=== PATIENT | male | born 1990 | race Caucasian/White ===

== ENCOUNTER 2019-03-04 10:56 | Observation (INO) ==
[2019-03-04] MEDS ORDERED: NORMAL SALINE 1,000 ML IV ONE (11:20)
--- NOTE | 2019-03-04 11:28 | ERNOTE ---
Psychological HPI - General Chief Complaint: Drug Overdose Source: Reports: patient Exam Limitations: Reports: no limitations - Immun/Allergies/Home Medications Allergies/Adverse Reactions: Allergies quetiapine [From Seroquel] Allergy (Severe, Verified 03/04/19 11:16) rhabdomylosis sertraline Allergy (Severe, Verified 03/04/19 11:16) rhabdomylosis naproxen Allergy (Verified 03/04/19 11:16) Itching Home Medications: HOME MEDICATIONS omeprazole 20 mg capsule,delayed release See Rx Instructions .ROUTE .COMPLEX #90 cap 11/22/18 [Last Taken Unknown] benztropine 1 mg tablet 1 mg PO BID #60 tab 02/16/19 [Last Taken Unknown] clonazepam 1 mg tablet 1 mg PO TID PRN #90 tab 02/16/19 [Last Taken Unknown] haloperidol 5 mg tablet 5 mg PO BID #60 tab 02/16/19 [Last Taken Unknown] hydroxyzine pamoate 50 mg capsule See Rx Instructions PO HS PRN #60 cap 02/16/19 [Last Taken Unknown] oxcarbazepine 300 mg tablet 300 mg PO BID #60 tab 02/16/19 [Last Taken Unknown] paliperidone palmitate (3-month) 819 mg/2.625 mL intramuscular syringe 819 mg IM [id number] #2.63 ml 02/16/19 [Last Taken Unknown] - History of Present Illness Narrative: Patient has multiple psychiatric diagnosis that he is on disability for and is seeing Ritu Ashley. He states that recently he has had a difficult time sleeping so this morning he took #15 Klonipin to just sleep, admit to drinking at least 10 beer on the 02 of March which he thinks was yesterday. He denies any acute stress, has chronic conflict with his . He denies wanting to "I have too much to live for" (names his mother and little brother) When his mother wasn't able to get hold of him this morning she called the police for a welfare check. He was brought to the ER by an officer after admitting to taking that much klonipin Time Seen by Provider: 03/04/19 11:03 Arrived by: Reports: police Intent: Reports: wants to escape. Denies: suicide Mechanism: Reports: overdose Situational Problems: Reports: spouse Associated Symptoms: Reports: depressed Review of Systems - Review of Systems Constitutional: Absent: recent illness, fever EYE: Absent: vision changes ENT: Present: no symptoms reported Respiratory: Absent: shortness of breath Cardiology: Absent: chest pain Gastrointestinal/Abdominal: Absent: nausea, abdominal pain Genitourinary: Present: no symptoms reported Musculoskeletal: Absent: back pain Neurological: Absent: headache Psych: Present: See HPI, depressed Medical History (Updated 03/04/19 @ 13:28 by Kathrine Grullon MD) Paranoid schizophrenia (Chronic) Anxiety (Chronic) Major depressive disorder, recurrent episode Anxiety Depression Disorganized schizophrenia Generalized anxiety disorder Hypokalemia Hypothyroidism Personality disorder Psychosis Tourettes disorder History of psychiatric hospitalization 7 PCU admits from 2009- 2011 [facility] [place] and [facility] [place] Rhabdomyolysis Substance abuse Suicidal ideations plan to OD in 2011 Surgical History: Surgical History (Updated 03/03/18 @ 17:15 by Lupe Ochoa RN) H/O elbow surgery Family History: Family History (Updated 03/03/18 @ 17:28 by Lupe Ochoa RN) Brother Intermittent explosive disorder Mother Arthritis Major depressive disorder Father Diabetes Myocardial infarction CVA (cerebral vascular accident) Sleep apnea Alcohol abuse Social History: Preferred Language Chinese Do you have any evangelical or No cultural preference? Smoking Status Current every day smoker Psych History Hx of Anxiety,Hx of Depression,Hx of Schizophrenia Alcohol Use occasionally Drug Use marijuana (Last Updated 02/16/19 @ 15:28 by Ritu Ashley FOOD SERVICE DIRECTOR) No Social History Section defined Psychological Exam - Exam General Appearance: Present: wd/wn, no apparent distress, other - slightly slow but able to converse Head Exam: Present: normal inspection Neurological: Present: normal mood/affect, calm, oriented x 3 Thoughts/Hallucinations: Present: normal thought pattern, no apparent hallucination Behavior/Eye Contact/Speech: Present: cooperative, good eye contact, normal speech Eye Exam: Normal inspection: bilateral, PERRL: bilateral Respiratory: Present: no respiratory distress, normal breath sounds, no accessory muscle use, lungs clear Cardiovascular/Chest: Present: regular rate, rhythm, no murmur Gastrointestinal/Abdominal: Present: normal bowel sounds, nontender, nondistended, soft Extremity Exam: Present: normal inspection, no edema Skin Exam: Present: normal color, warm/dry, other - no signs of injury Progress - Results and Orders Patient's Lab Results:: I have reviewed the patient's lab results. - Vital Signs Patient's Vital Signs:: I have reviewed the patient's vital signs. Vital Signs: Vital Signs 03/04/19 11:09 03/04/19 11:17 Pulse Rate 101 H 105 H Respiratory Rate 15 16 Blood Pressure 143/95 H 135/86 O2 Sat by Pulse Oximetry 97 98 - EKG EKG #1 EKG: NSR - sinustachycardia, RBBB - incomplete, no ST T wave changes EKG read: Interp. by me - Progress/Reassessment Chief Complaint: Drug Overdose Progress Note-Subjective: 03/04/19 13:21 discussed with julio Raymundo to admit for observation as patient is not suicidal doesn't need to be SCU admission Time Seen by Provider: 03/04/19 11:03 Departure Clinical Impression: Drug overdose Qualifiers: Encounter type: initial encounter Injury intent: undetermined intent Qualified Code(s): T50.904A - Poisoning by unspecified drugs, medicaments and biological substances, undetermined, initial encounter - Departure Disposition: Still a patient Condition: Stable
[2019-03-04 11:32] LABS: Hematocrit 43.6 % (42.0-52.0); Mean Corpuscular Hemoglobin 27.9 pg (27-31); Mean Corpuscular Hgb Conc 34.4 g/dl (32-36); Mean Platelet Volume 10.4 fl (8-11.3); Neutrophil # 4.9 K/mm3 (1.3-6.0); Neutrophil % 54.2 % (42-75.0); Platelet Count 256 K/mm3 (150-450); Red Blood Count 5.38 M/mm3 (4.7-6.0); Red Cell Distribution Width 13.6 % (11.5-14.0)
[2019-03-04 11:56] LABS: ALT 26 U/L (19-67); AST 20 U/L (0-48); Albumin * 3.5 gm/dl (3.4-5.0); Alkaline Phosphatase * 104 U/L (50-170); Anion Gap 15.3 mmol/L (6.8-13.8); Bilirubin, Total 0.3 mg/dL (0.0-1.1); Blood Urea Nitrogen 5 mg/dL (6-23); Ca. Corrected For Albumin 8.7 mg/dL (8.4-10.2); Calcium * 8.6 mg/dL (7.9-10.9); Carbon Dioxide 25.3 mmol/L (24-32.6); Chloride 105 mmol/L (97-106); Glucose * 101 mg/dL (70-110); Potassium 3.6 mmol/L (3.4-4.6); Salicylate 4.5 mg/dL (2.8-20.0); Sodium 142 mmol/L (132-142); TSH * 2.804 uIU/mL (0.358-3.74)
[2019-03-04 12:56] LABS: Urine Bilirubin Negative (NEGATIVE); Urine Blood Negative /ul (NEGATIVE); Urine Ketone Negative (NEGATIVE); Urine Nitrite Negative (NEGATIVE); Urine Protein Negative (NEGATIVE); Urine Urobilinogen Normal (NORMAL)
[2019-03-04 13:02] LABS: Urine Appearance Clear (CLEAR); Urine Bacteria None Seen; Urine Color Yellow; Urine RBC None Seen /hpf (0-5); Urine WBC None Seen /hpf (0-5)
[2019-03-04 13:15] LABS: Cocaine Ur Negative (NEGATIVE); Urine Barbiturate Negative (NEGATIVE); Urine Benzodiazepines Positive (NEGATIVE); Urine Opiates Negative (NEGATIVE); Urine PCP Negative (NEGATIVE); Urine THC Positive (NEGATIVE)
[2019-03-04] MEDS: MULTIVIT INFUSN,ADULT 4,VIT K 10 ML, THIAMINE HCL 100 MG in NORMAL SALINE 1,000 ML IV SCH ×2 (16:14→19:44)
--- NOTE | 2019-03-04 18:35 | HP ---
Chief Complaint - Chief Complaint Date of Service: 03/04/19 Time of Service: 18:35 Chief Complaint: Sedated, OD on anxiety medication History of Present Illness: 28-year-old male with history of anxiety/depression currently on clonazepam presented to the ER with sedation and somnolence. Patient states that he took 15 mg of his clonazepam for sleep issues. He denied any intent of wanting to hurt himself or hurt others. States he has a difficult time sleeping which is the only reason why did it. Of note his toxicology came back positive for benzodiazepines as well as alcohol. Poison control was called who recommended 24-hour monitoring but patient was protecting his airway and his vital signs are stable. He was admitted to the floor under observation. He is sleepy but denies any other issues or symptoms. Medical History (Updated 03/04/19 @ 13:28 by Kathrine Grullon MD) Paranoid schizophrenia (Chronic) Anxiety (Chronic) Major depressive disorder, recurrent episode Anxiety Depression Disorganized schizophrenia Generalized anxiety disorder Hypokalemia Hypothyroidism Personality disorder Psychosis Tourettes disorder History of psychiatric hospitalization 7 PCU admits from 2009- 2011 [facility] and [facility] [place] Rhabdomyolysis Substance abuse Suicidal ideations plan to OD in 2011 Surgical History: Surgical History (Updated 03/03/18 @ 17:15 by Lupe Ochoa RN) H/O elbow surgery Family History: Family History (Updated 03/03/18 @ 17:28 by Lupe Ochoa RN) Brother Intermittent explosive disorder Mother Arthritis Major depressive disorder Father Diabetes Myocardial infarction CVA (cerebral vascular accident) Sleep apnea Alcohol abuse Social History: Patient Lives/Resources Home Utilized Preferred Language Bengali Do you have any mosque or No cultural preference? Smoking Status Current every day smoker Have you smoked in the past 12 Yes months Do you dip or chew tobacco No Psych History Hx of Anxiety,Hx of Depression,Hx of Schizophrenia Alcohol Use occasionally Drug Use marijuana (Last Updated 02/16/19 @ 15:28 by RYAN Castañeda) No Social History Section defined Review Of Systems (GEN) - Review of Systems Generalized/Overall Review: Present: No Symptoms Reported EENTM: Present: No Symptoms Reported - If this is apparently them Respiratory: Absent: Shortness of Breath Cardiac: Absent: Chest Pain, Palpitations Abdominal: Present: No Symptoms Reported Genitourinary: Present: No Symptoms Reported Musculoskeletal: Present: No Symptoms Reported Neurological: Present: No Symptoms Reported Skin: Present: No Symptoms Reported Endocrine: Present: No Symptoms Reported Immunizations: IMMUNIZATION HX Immunizations Up to Date Yes History of Influenza Vaccine No Hx Pneumococcal Vaccination No Allergies/Adverse Reactions: Allergies Allergy/AdvReac Type Severity Reaction Status Date / Time quetiapine [From Seroquel] Allergy Severe rhabdomylos Verified 03/04/19 11:16 is sertraline Allergy Severe rhabdomylos Verified 03/04/19 11:16 is naproxen Allergy Itching Verified 03/04/19 11:16 Home Medications: HOME MEDICATIONS omeprazole 20 mg capsule,delayed release See Rx Instructions .ROUTE .COMPLEX #90 cap 11/22/18 [Last Taken Unknown] benztropine 1 mg tablet 1 mg PO BID #60 tab 02/16/19 [Last Taken Unknown] clonazepam 1 mg tablet 1 mg PO TID PRN #90 tab 02/16/19 [Last Taken Unknown] haloperidol 5 mg tablet 5 mg PO BID #60 tab 02/16/19 [Last Taken Unknown] hydroxyzine pamoate 50 mg capsule See Rx Instructions PO HS PRN #60 cap 02/16/19 [Last Taken Unknown] oxcarbazepine 300 mg tablet 300 mg PO BID #60 tab 02/16/19 [Last Taken Unknown] paliperidone palmitate (3-month) 819 mg/2.625 mL intramuscular syringe 819 mg IM [id number] #2.63 ml 02/16/19 [Last Taken Unknown] Exam - Exam Vital Signs: Vital Signs - Last Taken Temp 36.5 C 03/04/19 14:12 Pulse 83 03/04/19 17:39 Resp 16 03/04/19 17:39 BP 140/75 H 03/04/19 17:39 Pulse Ox 96 03/04/19 17:39 Constitutional: Present: Alert, Oriented x3, Somnolent ENT Exam: Present: hearing grossly normal. Absent: nasal congestion, nasal drainage Eye Exam: bilateral eye: normal inspection, PERRL, EOMI Neck: Present: non-tender, supple Respiratory: Present: lungs clear, normal breath sounds, no respiratory distress Cardiovascular/Chest: Present: regular rate, rhythm, no murmur Abdomen: Present: Normal bowel sounds, soft, nontender /Rectal: Present: Exam deferred Skin Exam: Present: normal color, warm/dry Appearance: Present: appropriate appearance, impaired insight Eye contact: Present: cooperative Thoughts: Present: normal thought pattern, normal mood /affect Diagnostic Studies: Abnormal Lab Results 03/04/19 03/04/19 03/04/19 Range/Units 11:27 11:27 12:50 Immature Gran % (Auto) 0.60 H (0.001-0.429) % Immature Gran # (Auto) 0.05 H (0.000-0.0310) K/mm3 Monocytes % 10.9 H (0.0-9) % Anion Gap 15.3 H (6.8-13.8) mmol/L BUN 5 L (6-23) mg/dL BUN/Creatinine Ratio 6.0 L (9.0-21.6) Acetaminophen Less than 0.2 L (10.0-30.0) mcg/mL U Benzodiazepines Scrn Positive H (NEGATIVE) Urine Marijuana (THC) Positive H (NEGATIVE) Ethyl Alcohol 77.0 H (0.0-10.0) mg/dL Laboratory Results WBC 9.0 K/mm3 (4.0-10.5) 03/04/19 11:27 RBC 5.38 M/mm3 (4.7-6.0) 03/04/19 11:27 Hgb 15.0 gm/dL (13.5-18.0) 03/04/19 11:27 Hct 43.6 % (42.0-52.0) 03/04/19 11:27 MCV 81.0 fl (78-100) 03/04/19 11:27 MCH 27.9 pg (27-31) 03/04/19 11:27 MCHC 34.4 g/dl (32-36) 03/04/19 11:27 RDW 13.6 % (11.5-14.0) 03/04/19 11:27 Plt Count 256 K/mm3 (150-450) 03/04/19 11:27 MPV 10.4 fl (8-11.3) 03/04/19 11:27 Immature Gran % (Auto) 0.60 % (0.001-0.429) H 03/04/19 11:27 Immature Gran # (Auto) 0.05 K/mm3 (0.000-0.0310) H 03/04/19 11:27 54.2 % (42-75.0) 03/04/19 11:27 31.5 % (20-51) 03/04/19 11:27 10.9 % (0.0-9) H 03/04/19 11:27 2.2 % (0.0-3.0) 03/04/19 11:27 0.6 % (0.0-1.0) 03/04/19 11:27 Nucleated RBC % 0.0 k/mm3 (0-1) 03/04/19 11:27 4.9 K/mm3 (1.3-6.0) 03/04/19 11:27 2.84 k/mm3 (1.5-3.5) 03/04/19 11:27 1.0 k/mm3 (0.0-1.0) 03/04/19 11:27 0.2 k/mm3 (0.0-0.7) 03/04/19 11:27 Absolute Basophils 0.1 k/mm3 (0.0-0.1) 03/04/19 11:27 Sodium 142 mmol/L (132-142) 03/04/19 11:27 142 mmol/L (130-142) 03/04/19 11:27 Potassium 3.6 mmol/L (3.4-4.6) 03/04/19 11:27 Chloride 105 mmol/L (97-106) 03/04/19 11:27 Carbon Dioxide 25.3 mmol/L (24-32.6) 03/04/19 11:27 15.3 mmol/L (6.8-13.8) H 03/04/19 11:27 BUN 5 mg/dL (6-23) L 03/04/19 11:27 0.83 mg/dL (0.4-1.4) 03/04/19 11:27 Est GFR (Non-Af Amer) 116 mL/min (60-130) D 03/04/19 11:27 6.0 (9.0-21.6) L 03/04/19 11:27 101 mg/dL (70-110) 03/04/19 11:27 Calcium 8.6 mg/dL (7.9-10.9) 03/04/19 11:27 Calcium Adj for Albumin 8.7 mg/dL (8.4-10.2) 03/04/19 11:27 0.3 mg/dL (0.0-1.1) 03/04/19 11:27 AST 20 U/L (0-48) 03/04/19 11:27 ALT 26 U/L (19-67) 03/04/19 11:27 104 U/L (50-170) 03/04/19 11:27 7.0 gm/dL (6.2-8.2) 03/04/19 11:27 3.5 gm/dl (3.4-5.0) 03/04/19 11:27 TSH 2.804 uIU/mL (0.358-3.74) 03/04/19 11:27 Yellow 03/04/19 12:50 Clear (CLEAR) 03/04/19 12:50 6.0 pH (5.0-7.0) 03/04/19 12:50 Ur Specific [place] 1.010 SP.GR. (1.005-1.030) 03/04/19 12:50 Negative mg/dL (NEGATIVE) 03/04/19 12:50 Negative mg/dL (NEGATIVE) 03/04/19 12:50 Negative mg/dL (NEGATIVE) 03/04/19 12:50 Negative /ul (NEGATIVE) 03/04/19 12:50 Negative (NEGATIVE) 03/04/19 12:50 Negative mg/dl (NEGATIVE) 03/04/19 12:50 Normal EU/dl (NORMAL) 03/04/19 12:50 Ur Leukocyte Esterase Negative /ul (NEGATIVE) 03/04/19 12:50 None seen /hpf (0-5) 03/04/19 12:50 None seen /hpf (0-5) 03/04/19 12:50 Ur Epithelial Cells None seen /hpf (0-5) 03/04/19 12:50 None seen (NONE) 03/04/19 12:50 No culture indicated 03/04/19 12:50 Salicylates 4.5 mg/dL (2.8-20.0) 03/04/19 11:27 Negative (NEGATIVE) 03/04/19 12:50 Acetaminophen Less than 0.2 mcg/mL (10.0-30.0) L 03/04/19 11:27 Negative (NEGATIVE) 03/04/19 12:50 Ur Phencyclidine Scrn Negative (NEGATIVE) 03/04/19 12:50 Urine Amphetamine Negative (NEGATIVE) 03/04/19 12:50 U Benzodiazepines Scrn Positive (NEGATIVE) H 03/04/19 12:50 Negative (NEGATIVE) 03/04/19 12:50 Positive (NEGATIVE) H 03/04/19 12:50 Ethyl Alcohol 77.0 mg/dL (0.0-10.0) H 03/04/19 11:27 Assessment/Plan - Narrative Narrative: Patient admitted to the floor for observation due to clonazepam overdose as well as alcohol intoxication. Patient currently pleasant, alert and oriented x3, his vital signs are stable he has no concerns. We will continue to monitor. Will follow with poison control for any other further recommendations prior to likely be discharged home tomorrow. Patient can be started on a regular diet, no DVT prophylaxis patient will be here for likely less than 2 days. Nurse will call with any questions or concerns. - Assessment/Plan (1) Drug overdose Problem: Acute Qualifiers: Encounter type: initial encounter Injury intent: undetermined intent Qualified Code(s): T50.904A - Poisoning by unspecified drugs, medicaments and biological substances, undetermined, initial encounter (2) Alcoholism /alcohol abuse Problem: Acute (3) Anxiety Problem: Chronic
[2019-03-04] MEDS: HALOPERIDOL 5 MG TABLET PO SCH (20:46)
[2019-03-04] MEDS: BENZTROPINE MESYLATE 0.5 MG TABLET PO SCH (20:46)
[2019-03-04] MEDS: OXcarbazepine 300 MG TABLET PO SCH (20:46)
[2019-03-05] MEDS: MULTIVIT INFUSN,ADULT 4,VIT K 10 ML, THIAMINE HCL 100 MG in NORMAL SALINE 1,000 ML IV SCH (02:44)
[2019-03-05] MEDS: HALOPERIDOL 5 MG TABLET PO SCH (10:15)
[2019-03-05] MEDS: BENZTROPINE MESYLATE 0.5 MG TABLET PO SCH (10:15)
[2019-03-05] MEDS: OXcarbazepine 300 MG TABLET PO SCH (10:15)
[2019-03-05 11:00] LABS: Albumin * 3.3 gm/dl (3.4-5.0); Anion Gap 12.6 mmol/L (6.8-13.8); BUN/Creatinine Ratio 9.3 (9.0-21.6); Bilirubin, Total 0.7 mg/dL (0.0-1.1); Calcium * 8.8 mg/dL (7.9-10.9); Carbon Dioxide 27.2 mmol/L (24-32.6); Potassium 3.8 mmol/L (3.4-4.6); Total Protein 6.5 gm/dL (6.2-8.2)
[2019-03-05 12:46] VITALS: BP 142/89
--- NOTE | 2019-03-06 10:14 | DS ---
(1) Drug overdose Problem: Acute Qualifiers: Encounter type: initial encounter Injury intent: undetermined intent Qualified Code(s): T50.904A - Poisoning by unspecified drugs, medicaments and biological substances, undetermined, initial encounter (2) Alcoholism /alcohol abuse Problem: Acute (3) Anxiety Problem: Chronic Description of Stay: Patient did well overnight without any acute events. His vital signs remained stable and he became more alert and oriented his medications were off. Per poison control repeated BMP and salicylate levels which will come back normal. Patient again denied any intent to monitor himself and states that he felt better. Since he would not be doing this again. Has plans to follow-up with his psychiatrist to discuss medications which I think is appropriate. Advised him to not take clonazepam until he speaks with him in regards to this medicine due to recent intentional medication abuse. Patient will follow up with them in 1 week. Patient was discharged home in stable condition and no changes were made to his medications other than holding his clonazepam. Procedures Performed: none Results and Findings: Lab Pending Results 03/04/19 11:27: WBC 9.0, RBC 5.38, Hgb 15.0, Hct 43.6, MCV 81.0, MCH 27.9, MCHC 34.4, RDW 13.6, Plt Count 256, MPV 10.4, Immature Gran % (Auto) 0.60 H, Immature Gran # (Auto) 0.05 H, Neutrophils % 54.2, Lymphocytes % 31.5, Monocytes % 10.9 H, Eosinophils % 2.2, Basophils % 0.6, Nucleated RBC % 0.0, Neutrophils # 4.9, Lymphocytes # 2.84, Monocytes # 1.0, Eosinophils # 0.2, Absolute Basophils 0.1 03/04/19 11:27: Sodium 142, Plasma Sodium 142, Potassium 3.6, Chloride 105, Carbon Dioxide 25.3, Anion Gap 15.3 H, BUN 5 L, Creatinine 0.83, Est GFR (Non-Af Amer) 116 D, BUN/Creatinine Ratio 6.0 L, Random Glucose 101, Calcium 8.6, Calcium Adj for Albumin 8.7, Total Bilirubin 0.3, AST 20, ALT 26, Alkaline Phosphatase 104, Total Protein 7.0, Albumin 3.5, TSH 2.804, Salicylates 4.5, Acetaminophen Less than 0.2 L, Ethyl Alcohol 77.0 H 03/04/19 12:50: Urine Color Yellow, Urine Appearance Clear, Urine pH 6.0, Ur Specific [place] 1.010, Urine Protein Negative, Urine Glucose (UA) Negative, Urine Ketones Negative, Urine Blood Negative, Urine Nitrate Negative, Urine Bilirubin Negative, Urine Urobilinogen Normal, Ur Leukocyte Esterase Negative, Urine RBC None seen, Urine WBC None seen, Ur Epithelial Cells None seen, Urine Bacteria None seen, Urine Culture Comments No culture indicated 03/04/19 12:50: Urine Opiates Screen Negative, Barbiturate Screen Negative, Ur Phencyclidine Scrn Negative, Urine Amphetamine Negative, U Benzodiazepines Scrn Positive H, Urine Cocaine Screen Negative, Urine Marijuana (THC) Positive H 03/05/19 10:38: Sodium 140, Plasma Sodium 140, Potassium 3.8, Chloride 104, Carbon Dioxide 27.2, Anion Gap 12.6, BUN 8 D, Creatinine 0.86, Est GFR (Non-Af Amer) 111, BUN/Creatinine Ratio 9.3, Random Glucose 107, Calcium 8.8, Calcium Adj for Albumin 9.0, Total Bilirubin 0.7, AST 20, ALT 25, Alkaline Phosphatase 105, Total Protein 6.5, Albumin 3.3 L, Salicylates 3.0 Discharge Location: Home Disposition: Home self-care Condition: Stable Discharge Activity: Activity as tolerated Discharge Diet: General/regular food Referrals: Ev Berkowitz MD [Staff Physician] - Problem Oriented Discharge Instructions to Patient/Family: Drug Overdose Additional Patient Instructions (free text): [facility] will call with follow-up appointment time, this week. Complete Home Medications List: Complete Home Medication List: omeprazole 20 mg capsule,delayed release See Rx Instructions .ROUTE .COMPLEX #90 cap 11/22/18 benztropine 1 mg tablet 1 mg PO BID #60 tab 02/16/19 clonazepam 1 mg tablet 1 mg PO TID PRN #90 tab 02/16/19 haloperidol 5 mg tablet 5 mg PO BID #60 tab 02/16/19 hydroxyzine pamoate 50 mg capsule See Rx Instructions PO HS PRN #60 cap 02/16/19 oxcarbazepine 300 mg tablet 300 mg PO BID #60 tab 02/16/19 paliperidone palmitate (3-month) 819 mg/2.625 mL intramuscular syringe 819 mg IM [id number] #2.63 ml 02/16/19
== END 2019-03-05 13:08 | disposition home or self-care (01) ==
LOC: MS 10:56 → ER 10:56 → MS 14:10
PROVIDERS: ADMIT Family Medicine; ATTEND Family Medicine
CPT/HCPCS: 36415; 80050; 80053; 80307; 80329; 81001; 93005; 96360; 96361; 99285; G0378; G0480